=== PATIENT | male | born 1995 | race Caucasian/White ===

== ENCOUNTER 2018-06-03 21:41 | Emergency (ER) | payer SELFPAY ==
[~2018-06-03] VITALS: Ht 165.1 cm; Wt 80.7 kg
== END 2018-06-03 22:15 ==
LOC: ED 21:41 → EDBD 22:03 → ED 22:03
DX: R11.0 Nausea (principal); R51 Headache

== ENCOUNTER 2019-08-21 19:18 | Emergency (ER) | payer SELFPAY ==
[~2019-08-21] VITALS: Ht 165.1 cm; Wt 77.1 kg
[2019-08-21] MEDS ORDERED: ANAPROX DS550 MG PO (21:03)
== END 2019-08-21 21:26 | disposition home or self-care (01) ==
LOC: ED 19:18
DX: S83.92XA Sprain of unspecified site of left knee, initial encounter (principal); W00.0XXA Fall on same level due to ice and snow, initial encounter; X50.1XXA Overexertion from prolonged static or awkward postures, initial encounter; Y93.89 Activity, other specified; Y92.89 Other specified places as the place of occurrence of the external cause; Y99.8 Other external cause status

== ENCOUNTER 2023-11-12 20:59 | Inpatient (IN) | payer OTHER ==
[~2023-11-12] VITALS: Ht 167.6 cm; Wt 86.6 kg
[~2023-11-12 20:59] MED LIST: ANAPROX DS550 MG PO
[2023-11-12 21:11] VITALS: BP 174/99
[2023-11-12 21:26] LABS: BASO # 0.1 10*3/uL (0.0-0.1); BASO % 0.7 % (0.0-1.0); EOS # 0.2 10*3/uL (0.0-0.4); EOS % 1.9 % (1.0-4.0); HEMATOCRIT 33.8 % (42.0-52.0); LYMPH # 2.1 10*3/uL (1.3-4.4); LYMPH % 20.6 % (27.0-41.0); MEAN CELL VOLUME 90.4 fl (80.0-94.0); MEAN CORPUSCULAR HGB 32.4 pg (27.0-31.0); MEAN CORPUSCULAR HGB CONC 35.8 g/dl (33.0-37.0); MEAN PLATELET VOLUME 8.8 fl (9.6-12.3); MONO # 1.3 10*3/uL (0.1-1.0); MONO % 12.7 % (3.0-9.0); NEUT # 6.6 10*3/uL (2.3-7.9); NEUT % 63.9 % (47.0-73.0); PLATELET COUNT AUTOMATED 563 10*3/uL (130-400); RED BLOOD COUNT 3.74 10*6/uL (4.50-5.90); RED CELL DISTRI WIDTH 13.3 % (0-14.5); WHITE BLOOD COUNT 10.3 10*3/uL (4.8-10.8)
[2023-11-12 21:38] LABS: ACT PARTIAL THROMBO TIME 33.4 SECONDS (20.0-32.1)
[2023-11-12 21:54] LABS: ALKALINE PHOSPHATASE 116 U/L (46-116); BUN 6 mg/dl (9-23); CHLORIDE 101 mmol/L (98-107); POTASSIUM 2.9 mmol/L (3.4-5.1); SGPT/ALT 148 U/L (5-49); TOTAL PROTEIN 8.1 gm/dL (6.0-8.0)
[2023-11-12] MEDS ORDERED: SODIUM CHLORIDE 0.9% 1,000 ML IV SCH (23:00)
[2023-11-12] MEDS ORDERED: Ceftriaxone Sodium 1 GM/10 ML SYR IV ONE (23:00)
[2023-11-12] MEDS ORDERED: AZITHROMYCIN 250 ML IV ONE (23:00)
[2023-11-12] MEDS ORDERED: POTASSIUM CHLORIDE 20 MEQ TAB PO ONE (23:15)
[2023-11-12] MEDS ORDERED: BISACODYL 5 MG TAB PO PRN (23:30)
[2023-11-12] MEDS ORDERED: Acetaminophen/Hydrocodone 5 MG/325 MG TABLET PO PRN (23:30)
[2023-11-12] MEDS ORDERED: Magnesium Hydroxide 30 ML UDC PO PRN (23:30)
[2023-11-12] MEDS ORDERED: ACETAMINOPHEN 325 MG TAB PO PRN (23:30)
[2023-11-12] MEDS ORDERED: MORPHINE Sulfate 2 MG/ML SYR IV PRN (23:30)
[2023-11-12] MEDS ORDERED: BISACODYL 10 MG SUPP R PRN (23:30)
[2023-11-13] MEDS ORDERED: POTASSIUM CHLORIDE IN WATER 100 ML IV SCH
[2023-11-13] MEDS ORDERED: SODIUM CHLORIDE 0.9% 100 ML BAG IV ONE (00:20)
[2023-11-13] MEDS ORDERED: IOHEXOL 350 MG/ML 100 ML VIAL IV ONE (00:20)
[2023-11-13 01:13] LABS: BILIRUBIN 1+ (Negative); BLOOD Negative (Negative); CLARITY Clear (Clear); COLOR Dark Yellow (Yellow); GLUCOSE Negative (Negative); KETONE Trace (Negative); LEUKO ESTERASE Negative (Negative); NITRITE Negative (Negative); PH 6.5 (4.5-8.0); UROBILINOGEN 0.2 E.U./dl (0.0-1.0)
[2023-11-13 01:22] LABS: BACTERIA 1+; MUCOUS 2+
[2023-11-13 01:58] VITALS: BP 145/92
[2023-11-13 05:36] LABS: ALKALINE PHOSPHATASE 101 U/L (46-116); BUN 6 mg/dl (9-23); CHLORIDE 106 mmol/L (98-107); CHOLESTEROL 145 mg/dL (<200); FREE T4 1.45 ng/dl (0.89-1.76); LDL CHOLESTEROL 104 mg/dL (9-159); SGPT/ALT 127 U/L (5-49); TOTAL PROTEIN 7.2 gm/dL (6.0-8.0); TRIGLYCERIDES 55 mg/dl (<150)
[2023-11-13 05:38] LABS: POTASSIUM 4.2 mmol/L (3.4-5.1)
[2023-11-13 06:00] LABS: BASO # 0.1 10*3/uL (0.0-0.1); BASO % 0.7 % (0.0-1.0); EOS # 0.2 10*3/uL (0.0-0.4); EOS % 2.1 % (1.0-4.0); HEMATOCRIT 33.2 % (42.0-52.0); LYMPH % 20.5 % (27.0-41.0); MEAN CELL VOLUME 89.7 fl (80.0-94.0); MEAN CORPUSCULAR HGB 30.8 pg (27.0-31.0); MEAN CORPUSCULAR HGB CONC 34.3 g/dl (33.0-37.0); MEAN PLATELET VOLUME 9.2 fl (9.6-12.3); MONO # 1.2 10*3/uL (0.1-1.0); MONO % 11.9 % (3.0-9.0); NEUT # 6.3 10*3/uL (2.3-7.9); NEUT % 64.5 % (47.0-73.0); PLATELET COUNT AUTOMATED 506 10*3/uL (130-400); RED CELL DISTRI WIDTH 12.7 % (0-14.5); WHITE BLOOD COUNT 9.8 10*3/uL (4.8-10.8)
[2023-11-13] MEDS ORDERED: Levalbuterol Hydrochloride 1.25 MG VIAL NEB SCH (06:00)
[2023-11-13] MEDS ORDERED: Levalbuterol Hydrochloride 1.25 MG VIAL NEB PRN (06:04)
[2023-11-13] MEDS ORDERED: IPRATROPIUM BROMIDE 0.5 MG/2.5 ML AMP NEB PRN (06:05)
[2023-11-13 06:10] VITALS: BP 158/88
[2023-11-13] MEDS ORDERED: Enoxaparin Sodium 40 MG/0.4 ML SYR SC SCH (10:00)
[2023-11-13] MEDS ORDERED: GUAIFENESIN 600 MG TAB ER PO SCH (10:00)
[2023-11-13 13:11] VITALS: BP 147/100
[2023-11-13 14:20] VITALS: BP 154/79
[2023-11-13 16:00] VITALS: BP 145/79
[2023-11-13 20:00] VITALS: BP 144/84
[2023-11-13] MEDS ORDERED: AZITHROMYCIN 250 ML IV SCH (22:00)
[2023-11-13] MEDS ORDERED: Ceftriaxone Sodium 1 GM in SYRINGE INFUSION 10 ML IV SCH (22:00)
[2023-11-14] VITALS: BP 167/62
[2023-11-14 06:04] LABS: BASO # 0.1 10*3/uL (0.0-0.1); BASO % 0.9 % (0.0-1.0); EOS # 0.3 10*3/uL (0.0-0.4); EOS % 2.7 % (1.0-4.0); HEMATOCRIT 36.2 % (42.0-52.0); LYMPH # 1.6 10*3/uL (1.3-4.4); LYMPH % 15.5 % (27.0-41.0); MEAN CELL VOLUME 89.2 fl (80.0-94.0); MEAN CORPUSCULAR HGB 28.1 pg (27.0-31.0); MEAN CORPUSCULAR HGB CONC 31.5 g/dl (33.0-37.0); MONO # 1.1 10*3/uL (0.1-1.0); MONO % 10.8 % (3.0-9.0); NEUT # 7.3 10*3/uL (2.3-7.9); NEUT % 69.7 % (47.0-73.0); PLATELET COUNT AUTOMATED 493 10*3/uL (130-400); RED BLOOD COUNT 4.06 10*6/uL (4.50-5.90); RED CELL DISTRI WIDTH 12.5 % (0-14.5); WHITE BLOOD COUNT 10.5 10*3/uL (4.8-10.8)
[2023-11-14 06:21] LABS: BUN 6 mg/dl (9-23); CHLORIDE 101 mmol/L (98-107); POTASSIUM 3.7 mmol/L (3.4-5.1)
[2023-11-14 08:00] VITALS: BP 155/87
[2023-11-14 12:00] VITALS: BP 149/84
[2023-11-14 16:00] VITALS: BP 151/46
[2023-11-14 20:00] VITALS: BP 141/77
[2023-11-15] VITALS: BP 138/87
[2023-11-15 07:05] LABS: BASO # 0.1 10*3/uL (0.0-0.1); BASO % 0.7 % (0.0-1.0); EOS # 0.4 10*3/uL (0.0-0.4); EOS % 3.7 % (1.0-4.0); HEMATOCRIT 36.9 % (42.0-52.0); LYMPH % 20.4 % (27.0-41.0); MEAN CELL VOLUME 87.2 fl (80.0-94.0); MEAN CORPUSCULAR HGB 27.7 pg (27.0-31.0); MEAN CORPUSCULAR HGB CONC 31.7 g/dl (33.0-37.0); MEAN PLATELET VOLUME 8.9 fl (9.6-12.3); MONO % 10.6 % (3.0-9.0); NEUT # 6.2 10*3/uL (2.3-7.9); NEUT % 64.2 % (47.0-73.0); PLATELET COUNT AUTOMATED 530 10*3/uL (130-400); RED BLOOD COUNT 4.23 10*6/uL (4.50-5.90); RED CELL DISTRI WIDTH 12.2 % (0-14.5); WHITE BLOOD COUNT 9.7 10*3/uL (4.8-10.8)
[2023-11-15 07:39] LABS: BUN 5 mg/dl (9-23); CHLORIDE 100 mmol/L (98-107); POTASSIUM 4.1 mmol/L (3.4-5.1)
[2023-11-15 08:00] VITALS: BP 128/75
[2023-11-15 12:00] VITALS: BP 126/86
[2023-11-15 16:00] VITALS: BP 135/88
[2023-11-15 20:00] VITALS: BP 148/83
[2023-11-16] VITALS: BP 144/83
[2023-11-16 06:20] LABS: BASO # 0.1 10*3/uL (0.0-0.1); BASO % 1.1 % (0.0-1.0); EOS # 0.5 10*3/uL (0.0-0.4); EOS % 5.2 % (1.0-4.0); HEMATOCRIT 39.3 % (42.0-52.0); LYMPH # 1.9 10*3/uL (1.3-4.4); LYMPH % 21.6 % (27.0-41.0); MEAN CELL VOLUME 89.1 fl (80.0-94.0); MEAN CORPUSCULAR HGB 27.9 pg (27.0-31.0); MEAN CORPUSCULAR HGB CONC 31.3 g/dl (33.0-37.0); MEAN PLATELET VOLUME 9.2 fl (9.6-12.3); MONO # 1.1 10*3/uL (0.1-1.0); MONO % 12.6 % (3.0-9.0); NEUT # 5.2 10*3/uL (2.3-7.9); NEUT % 59.2 % (47.0-73.0); PLATELET COUNT AUTOMATED 577 10*3/uL (130-400); RED BLOOD COUNT 4.41 10*6/uL (4.50-5.90); RED CELL DISTRI WIDTH 12.2 % (0-14.5); WHITE BLOOD COUNT 8.9 10*3/uL (4.8-10.8)
[2023-11-16 06:36] LABS: BUN 6 mg/dl (9-23); CHLORIDE 99 mmol/L (98-107); POTASSIUM 4.2 mmol/L (3.4-5.1)
[2023-11-16 08:00] VITALS: BP 147/89
[2023-11-16 12:00] VITALS: BP 138/90
[2023-11-16 16:00] VITALS: BP 151/91
[2023-11-16 20:00] VITALS: BP 157/89
[2023-11-17] VITALS: BP 152/99
[2023-11-17 08:00] VITALS: BP 141/81
[2023-11-17 12:00] VITALS: BP 135/97
[2023-11-17] MEDS ORDERED: MUCUS RELIEF600 MG PO (13:21)
[2023-11-17] MEDS ORDERED: ZITHROMAX250 MG PO (13:21)
== END 2023-11-17 14:30 | disposition home or self-care (01) | DRG 871 ==
LOC: ED 20:59 → 4E 23:11 → EDHOLD 23:11 → 4E 11-13 12:58
PROVIDERS: Emergency Medicine; Student in an Organized Health Care Education/Training Program; ADMIT Family Medicine; ATTEND Family Medicine
DX: A41.9 Sepsis, unspecified organism (principal); J18.9 Pneumonia, unspecified organism; J96.01 Acute respiratory failure with hypoxia; E87.1 Hypo-osmolality and hyponatremia; E44.1 Mild protein-calorie malnutrition; E87.6 Hypokalemia; R65.20 Severe sepsis without septic shock; R74.01 Elevation of levels of liver transaminase levels; D64.9 Anemia, unspecified; D75.839 Thrombocytosis, unspecified; Z78.9 Other specified health status; Z83.3 Family history of diabetes mellitus; Z68.30 Body mass index [BMI] 30.0-30.9, adult